=== PATIENT | female | born 1985 | race African-American/Black ===

== ENCOUNTER 2017-06-15 02:29 | Inpatient (IN) | payer MEDICAID ==
[~2017-06-15] VITALS: Ht 158.8 cm; Wt 73.0 kg
[2017-06-15] MEDS ORDERED: LORazepam 2 MG TABLET PO PRN (03:15)
[2017-06-15] MEDS ORDERED: ZOLPIDEM TARTRATE 10 MG TABLET PO PRN (03:15)
[2017-06-15] MEDS ORDERED: HALOPERIDOL 5 MG TABLET PO PRN (03:15)
[2017-06-15] MEDS ORDERED: LORazepam 2 MG/ML VIAL IM ONE ×2 (04:00→16:45)
[2017-06-15] MEDS ORDERED: HALOPERIDOL LACTATE 5 MG/ML VIAL IM ONE ×2 (04:00→16:45)
[2017-06-15] MEDS ORDERED: DiphenhydrAMINE HCL 50 MG/ML VIAL IM ONE ×2 (04:00→16:45)
[2017-06-15 04:38] LABS: BASOPHILS % (AUTO) 0.3 % (0.0-2.0); EOSINOPHILS % (AUTO) 0.2 % (1.0-6.0); HEMATOCRIT 40.5 % (36-46); HEMOGLOBIN 13.9 g/dL (12.0-16.0); LYMPHOCYTES # (AUTO) 0.9 K/uL (1.0-4.8); LYMPHOCYTES % (AUTO) 19.1 % (22.0-44.0); MEAN CORPUSCULAR HEMOGLOBIN 30.7 pg (26.0-34.0); MEAN CORPUSCULAR HGB CONC 34.4 G/dL (31.0-37.0); MEAN CORPUSCULAR VOLUME 89 fL (80-100); MONOCYTES # (AUTO) 0.3 K/uL (0.1-1.0); MONOCYTES % (AUTO) 5.8 % (2.0-9.0); NEUTROPHILS # (AUTO) 3.5 K/uL (1.8-7.7); NEUTROPHILS % (AUTO) 74.6 % (40.0-70.0); PLATELET COUNT (AUTO) 234 K/uL (150-450); RED BLOOD CELL COUNT(AUTO) 4.53 MIL/uL (4.00-5.20); RED CELL DISTRIBUTION WIDTH 13.9 % (11.5-14.5)
[2017-06-15 04:40] LABS: AMPHET/METH SCREEN,URINE NEGATIVE (NEGATIVE); BARBITURATE SCREEN, URINE NEGATIVE (NEGATIVE); BENZODIAZEPINES SCREEN,URINE NEGATIVE (NEGATIVE); CANNABINOID SCREEN,URINE POSITIVE (NEGATIVE); COCAINE SCREEN,URINE NEGATIVE (NEGATIVE); METHADONE SCREEN, URINE NEGATIVE (NEGATIVE); OPIATE SCREEN,URINE NEGATIVE (NEGATIVE); PHENCYCLIDINE SCREEN,URINE NEGATIVE (NEGATIVE)
[2017-06-15 04:55] LABS: ALANINE AMINOTRANSFERASE 17 U/L (12-78); ALBUMIN 4.3 g/dL (3.4-5.0); ALKALINE PHOSPHATASE 57 U/L (46-116); ANION GAP 13 mmol/L (8-16); ASPARTATE AMINOTRANSFERASE 13 U/L (15-37); BILIRUBIN,TOTAL 0.6 mg/dL (0.1-1.0); CARBON DIOXIDE 24 mmol/L (22-29); CHLORIDE 105 mmol/L (98-107); CREATININE 0.78 mg/dL (0.60-1.30); GLOMERULAR FILTR. RATE CALC > 60 mL/min (>60); GLUCOSE,RANDOM 90 mg/dL (70-110); SODIUM SERUM 142 mmol/L (136-145)
[2017-06-15 05:17] LABS: UREA NITROGEN, BLOOD 17 mg/dL (7-18)
[2017-06-15] MEDS: POTASSIUM CHLORIDE 20 MEQ ER TABLET PO ONE ×2 (07:13→15:17)
[2017-06-16] MEDS ORDERED: ONDANSETRON HCL 4 MG/2 ML VIAL IM ONE (06:30)
[2017-06-16] MEDS ORDERED: LORazepam 2 MG/ML VIAL IM ONE (06:30)
[2017-06-16] MEDS ORDERED: DiphenhydrAMINE HCL 50 MG/ML VIAL IM ONE (06:30)
[2017-06-16] MEDS ORDERED: HALOPERIDOL LACTATE 5 MG/ML VIAL IM ONE (06:30)
[2017-06-16] MEDS ORDERED: MORPHINE SULFATE 4 MG/ML SYRINGE IM ONE (06:30)
[2017-06-16 09:32] LABS: CHOL/HDL RATIO 3.8 (3.9-5.7)
[2017-06-16 16:40] VITALS: BP 118/83
[2017-06-17 06:58] VITALS: BP 120/62
[2017-06-17 08:25] VITALS: BP 100/73
[2017-06-17] MEDS: RisperiDONE 2 MG TABLET PO SCH (10:15)
[2017-06-17 17:34] VITALS: BP 124/82
[2017-06-17] MEDS ORDERED: ACETAMINOPHEN 325 MG TABLET PO PRN (18:30)
[2017-06-17] MEDS ORDERED: IBUPROFEN 400 MG TABLET PO PRN (18:30)
[2017-06-17] MEDS ORDERED: POTASSIUM CHLORIDE 20 MEQ ER TABLET PO ONE (18:30)
[2017-06-18 05:38] VITALS: BP 110/78
[2017-06-18 08:30] VITALS: BP 107/80
[2017-06-18] MEDS: RisperiDONE 2 MG TABLET PO SCH (09:00)
[2017-06-18 16:31] VITALS: BP 111/82
[2017-06-19 03:20] VITALS: BP 117/81
[2017-06-19 08:30] VITALS: BP 106/65
[2017-06-19] MEDS: RisperiDONE 2 MG TABLET PO SCH (09:00)
[2017-06-19] MEDS: SERTRALINE HCL 50 MG TABLET PO SCH (11:32)
[2017-06-19 16:00] VITALS: BP 125/90
[2017-06-19 20:51] VITALS: BP 118/85
[2017-06-20 05:31] VITALS: BP 126/91
[2017-06-20 08:45] VITALS: BP 113/79
[2017-06-20] MEDS: RisperiDONE 2 MG TABLET PO SCH (09:00)
[2017-06-20] MEDS: SERTRALINE HCL 50 MG TABLET PO SCH (09:05)
[2017-06-20] MEDS ORDERED: SERT50TA12 PO (13:40)
[2017-06-20] MEDS ORDERED: RISP2 PO (13:40)
== END 2017-06-20 15:40 | disposition home or self-care (01) | DRG 751 ==
LOC: EMS 02:30 → B3A 06-16 12:13
DX: F29 Unspecified psychosis not due to a substance or known physiological condition (principal); R45.851 Suicidal ideations; F20.9 Schizophrenia, unspecified; E87.6 Hypokalemia; F41.9 Anxiety disorder, unspecified; R00.0 Tachycardia, unspecified; F10.10 Alcohol abuse, uncomplicated; F12.90 Cannabis use, unspecified, uncomplicated; F19.10 Other psychoactive substance abuse, uncomplicated; Z71.41 Alcohol abuse counseling and surveillance of alcoholic
CPT/HCPCS: 84132; 87081; 96372; 99285; G0480; J1200; J1630; J2060